=== PATIENT | female | born 1935 | race Caucasian/White ===

== ENCOUNTER 2023-03-12 13:06 | Outpatient (CLI) | payer MEDICARE, SELFPAY ==
--- NOTE | ~2023-03-12 | XR_ITS ---
XR abdomen/kub 1V DATE: 03/12/2023 13:28 INDICATION: Left renal stone TECHNIQUE: AP view COMPARISON: None FINDINGS: Surgical clips overlie the right upper quadrant, consistent with cholecystectomy. The psoas shadows are intact. No visceromegaly is detected. No renal calcifications are noted; noncontrast CT abdomen pelvis would be more sensitive and accurate for evaluation of urinary tract calculi. There is a moderately prominent amount fecal material within the colon. No bowel obstruction is detec fredrick. 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 Osteopen ia. IMPRESSION: Status post cholecystectomy; nonspecific abdomen Reviewed, dictated and finalized at [facility]. Reviewed, dictated and finalized at [facility].
== END 2023-03-12 13:07 | disposition home or self-care (01) ==
PROVIDERS: PCP Family Medicine Sports Medicine; Visit Provider Nurse Practitioner Family
DX: N20.0 Calculus of kidney (principal)
CPT/HCPCS: 74018

== ENCOUNTER 2024-02-23 13:01 | Outpatient (CLI) | payer MEDICARE, SELFPAY ==
--- NOTE | ~2024-02-23 | XR_ITS ---
XR abdomen/kub 1V Ordering provider: Tori Brito PA-C History: . HX OF STONES . Comparison: March 12, 2023 FINDINGS: BOWEL: Nonobstructive bowel gas pattern. Opacity seen in the pelvis are most likely in the fecal material. ORGANOMEGALY: None. SIGNIFICANT PATHOLOGIC CALCIFICATIONS: Calcifications in the right renal area which are most likely s tones. OTHER: No free air is seen under the diaphragm. Degenerative changes of the spine. Bilateral hip osteoarthritic changes. IMPRESSION: NO ACUTE ABDOMINAL FINDINGS. Highly suggestive right kidney stones. Reviewed, dictated and finalized at [facility].
== END 2024-02-23 13:02 | disposition home or self-care (01) ==
LOC: ANHIMG 13:05
PROVIDERS: PCP Family Medicine Sports Medicine; Visit Provider Physician Assistant
DX: N20.0 Calculus of kidney (principal)
CPT/HCPCS: 74018

== ENCOUNTER 2025-02-21 13:50 | Outpatient (CLI) | payer MEDICARE, SELFPAY ==
--- NOTE | ~2025-02-21 | XR_ITS ---
Supine and upright views of the abdomen Clinical history: Left renal stone COMPARISON: 02/23/2024 Findings: Bowel gas pattern is nonspecific. No evidence for obstruction or free air. Questionable pun ctate left lower pole renal stone. Osseous structures are intact. Impression: Questionable punctate left lower pole renal stone. Reviewed, dictated and finalized at [facility]. Impression: Questionable punctate left lower pole renal stone.
== END 2025-02-21 13:51 | disposition home or self-care (01) ==
PROVIDERS: PCP Family Medicine Sports Medicine; Visit Provider Physician Assistant
DX: N20.0 Calculus of kidney (principal)
CPT/HCPCS: 74018